=== PATIENT | female | born 2000 | race Caucasian/White ===

== ENCOUNTER 2020-09-21 22:57 | Emergency (ER) | payer MEDICAID ==
[~2020-09-21] VITALS: Ht 167.6 cm; Wt 75.0 kg
[2020-09-21] MEDS ORDERED: dexamethasone 4mg tablet PO STA (23:19)
[2020-09-21] MEDS ORDERED: albuterol 2.5 MG/3 ML nebule NEB ONE (23:20)
[2020-09-22] MEDS ORDERED: ALBU18HF2 IH (01:07)
[2020-09-22] MEDS ORDERED: DEC4T PO (01:07)
[2020-09-22 01:18] VITALS: BP 130/78
== END 2020-09-22 01:19 | disposition home or self-care (01) ==
LOC: ER 22:58
DX: J45.901 Unspecified asthma with (acute) exacerbation (principal); Z20.822 Contact with and (suspected) exposure to COVID-19; R09.89 Other specified symptoms and signs involving the circulatory and respiratory systems; R06.02 Shortness of breath; R05 Cough
CPT/HCPCS: 36415; 87502; 87503; 94640; 99283; U0003; 94760

== ENCOUNTER 2020-10-07 07:40 | Emergency (ER) | payer MEDICAID ==
[~2020-10-07] VITALS: Ht 154.9 cm; Wt 84.5 kg
[~2020-10-07 07:40] MED LIST: ALBU18HF2 IH; DEC4T PO
--- NOTE | 2020-10-07 08:00 | NUR ---
DR. WALLS AT BEDSIDE
--- NOTE | 2020-10-07 08:00 | NUR ---
pt refuses iv and blood draw. dr. ramirez aware please see new orders.
[2020-10-07] MEDS ORDERED: normal saline 1000ml 1,000 ML IV ONE ×2 (08:10→10:20)
[2020-10-07] MEDS ORDERED: fentaNYL intranasal KIT NAS STA (08:11)
[2020-10-07] MEDS ORDERED: LORazepam 0.5 MG tablet PO ONE (08:15)
[2020-10-07] MEDS ORDERED: labetalol 100mg tablet PO ONE (08:40)
[2020-10-07 09:41] LABS: ALANINE AMINOTRANSFERASE 38 U/L (12-78); ALBUMIN 3.8 G/DL (3.4-5.0); ALBUMIN/GLOBULIN RATIO 0.9 (1.1-1.5); ALKALINE PHOSPHATASE 35 IU/L (20-180); ANION GAP 12 (8-16); ASPARTATE AMINO TRANSFERASE 27 U/L (10-37); BILIRUBIN,TOTAL 0.1 MG/DL (0.1-1.0); BLOOD UREA NITROGEN 12 MG/DL (7-18); BUN/CREATININE RATIO 14.6 (6.6-38.0); CALCIUM 8.8 MG/DL (8.5-10.1); CHLORIDE 100 MMOL/L (99-107); CREATININE 0.82 MG/DL (0.40-0.90); GLUCOSE 106 MG/DL (70-104); SODIUM 139 MMOL/L (135-145); TOTAL CARBON DIOXIDE 27.5 MMOL/L (24-32); TOTAL PROTEIN 8.1 G/DL (6.4-8.2); eGFR 90 ML/MIN
--- NOTE | 2020-10-07 09:46 | NUR ---
ATTEMPTED TO DRAW OUT OF PIV TO RIGHT HAND TO NO AVAIL DESPITE ATTEMPTING MULTIPLE DIFFERENT TECHNIQUES EDUCATED PATIENT AND FATHER, PATIENT AGREED TO ALLOW TRANSVERSE ABDOMINAL MUSCLE NURSE TO DRAW CBC DUE TO IT CLOTTNG
[2020-10-07 09:47] LABS: MAGNESIUM 1.7 MG/DL (1.5-2.4)
[2020-10-07 09:48] LABS: POTASSIUM 3.5 MMOL/L (3.5-5.1)
[2020-10-07 10:05] LABS: BASOPHILS # (AUTO) 0.1 X10'3 (0-0.2); BASOPHILS % (AUTO) 0.3 % (0-1); EOSINOPHILS # (AUTO) 0.1 X10'3 (0-0.9); EOSINOPHILS % (AUTO) 0.6 % (0-6); HEMATOCRIT 36.3 % (35.0-45.0); HEMOGLOBIN 11.4 g/dl (12.0-16.0); LYMPHOCYTES # (AUTO) 1.6 X10'3 (1.1-4.8); LYMPHOCYTES % (AUTO) 7.5 % (21-51); MEAN CORPUSCULAR HEMOGLOBIN 25.2 PG (27.0-31.0); MEAN CORPUSCULAR HGB CONC 31.5 g/dL (33.0-36.5); MEAN CORPUSCULAR VOLUME 80.1 FL (78-98); MEAN PLATELET VOLUME 8.1 FL (7.4-10.4); MONOCYTES # (AUTO) 1.4 X10'3 (0-0.9); MONOCYTES % (AUTO) 6.6 % (2-12); NEUTROPHILS # (AUTO) 17.9 X10'3 (1.8-7.7); PLATELET COUNT 286 X10'3 (140-440); RED BLOOD COUNT 4.53 X10'6 (4.20-5.60); RED CELL DISTRIBUTION WIDTH 16.5 % (11.5-14.5); WHITE BLOOD COUNT 21.1 X10'3 (4.5-11.0)
[2020-10-07 10:10] LABS: HCG SERUM QL NEGATIVE
[2020-10-07] MEDS ORDERED: iohexol 350MG/ML 100ml bottle IV ONE (10:21)
--- NOTE | 2020-10-07 10:25 | NUR ---
ATTEMPT REPEAT EKG, PATIENT NOT IN ROOM, PATIENT OFF TO CT.
--- NOTE | 2020-10-07 11:24 | NUR ---
PT WITH INCREASE RR 28, LABORED, 02 SAT 89-90 ON RA. INCREASE 02 TO 4 L//MIN NC. 02 SAT 92-93%
[2020-10-07] MEDS ORDERED: ipratropium/albuterol 3ml nebule NEB ONE (11:25)
[2020-10-07] MEDS ORDERED: LORazepam 2 mg/ml vial IV ONE (11:25)
--- NOTE | 2020-10-07 11:30 | NUR ---
DR. WALLS AT BEDSIDE, PLEASE SEE NEW ORDERS.
--- NOTE | 2020-10-07 11:31 | NUR ---
NC CHANGED TO NON-REBREATHER ON 10L/MIN. 02 SAT 97% RR 24, HR 128.
[2020-10-07] MEDS ORDERED: ketorolac trometh. 30mg/ml inj. IV ONE (11:55)
[2020-10-07] MEDS ORDERED: acetaminophen 325mg tablet PO ONE (12:00)
[2020-10-07] MEDS ORDERED: PRED20TA PO (13:13)
--- NOTE | 2020-10-07 13:13 | NUR ---
EDUCATED PT TO DB&C Q1HR AT HOME
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
[2020-10-07 13:57] VITALS: BP 105/53
== END 2020-10-07 13:58 | disposition home or self-care (01) ==
LOC: ER 07:40
DX: J45.909 Unspecified asthma, uncomplicated (principal); Z79.899 Other long term (current) drug therapy
CPT/HCPCS: 36415; 71045; 71275; 80053; 83735; 83880; 84145; 84484; 84703; 85025; 93005; 94640; 96361; 96374; 96375; 99285; J1885; J2060; J3010; J7030; Q9967; 94760

== ENCOUNTER 2020-11-07 09:52 | Emergency (ER) | payer MEDICAID ==
[~2020-11-07] VITALS: Ht 154.9 cm; Wt 100.0 kg
[~2020-11-07 09:52] MED LIST changes: -DEC4T PO
[2020-11-07] MEDS ORDERED: albuterol 2.5 MG/3 ML nebule CONTNEB PRN ×2 (10:05→10:10)
[2020-11-07] MEDS ORDERED: ALBU18HF2 INH (10:07)
[2020-11-07] MEDS ORDERED: PRED20TA PO (10:07)
[2020-11-07] MEDS ORDERED: dexamethasone 4mg tablet PO ONE (10:10)
[2020-11-07 12:18] VITALS: BP 104/51
== END 2020-11-07 12:19 | disposition home or self-care (01) ==
LOC: ER 09:53
DX: J45.901 Unspecified asthma with (acute) exacerbation (principal); Z79.899 Other long term (current) drug therapy
CPT/HCPCS: 93005; 94640; 94644; 94760; 99285; A7015

== ENCOUNTER 2021-05-15 23:34 | Emergency (ER) | payer MEDICAID ==
[~2021-05-15] VITALS: Ht 154.9 cm; Wt 82.2 kg
[~2021-05-15 23:34] MED LIST changes: +ALBU18HF2 INH; +NO HOME MEDS
[2021-05-15] MEDS ORDERED: ipratropium/albuterol 3ml nebule NEB ONE (23:40)
[2021-05-15] MEDS ORDERED: methylPREDNISolone sod succ 125mg/2ml vial IV ONE (23:50)
--- NOTE | 2021-05-16 00:21 | NUR ---
pt refusing covid swab, states"I dont have covid, I dont leave my bedroom"
[2021-05-16 00:34] LABS: BASOPHILS % (AUTO) 0.3 % (0-1); EOSINOPHILS # (AUTO) 0.2 X10'3 (0-0.9); EOSINOPHILS % (AUTO) 0.9 % (0-6); HEMATOCRIT 36.3 % (35.0-45.0); HEMOGLOBIN 12.1 g/dl (12.0-16.0); LYMPHOCYTES # (AUTO) 2.5 X10'3 (1.1-4.8); LYMPHOCYTES % (AUTO) 15.1 % (21-51); MEAN CORPUSCULAR HEMOGLOBIN 26.5 PG (27.0-31.0); MEAN CORPUSCULAR HGB CONC 33.4 g/dL (33.0-36.5); MEAN CORPUSCULAR VOLUME 79.4 FL (78-98); MEAN PLATELET VOLUME 7.9 FL (7.4-10.4); MONOCYTES # (AUTO) 1.3 X10'3 (0-0.9); MONOCYTES % (AUTO) 7.7 % (2-12); NEUTROPHILS # (AUTO) 12.6 X10'3 (1.8-7.7); PLATELET COUNT 362 X10'3 (140-440); RED BLOOD COUNT 4.57 X10'6 (4.20-5.60); RED CELL DISTRIBUTION WIDTH 15.4 % (11.5-14.5); WHITE BLOOD COUNT 16.6 X10'3 (4.5-11.0)
[2021-05-16 00:44] LABS: ALANINE AMINOTRANSFERASE 36 U/L (12-78); ALBUMIN 3.6 G/DL (3.4-5.0); ALBUMIN/GLOBULIN RATIO 0.9 (1.1-1.5); ALKALINE PHOSPHATASE 33 IU/L (20-180); ANION GAP 14 (8-16); ASPARTATE AMINO TRANSFERASE 17 U/L (10-37); BILIRUBIN,TOTAL 0.2 MG/DL (0.1-1.0); BLOOD UREA NITROGEN 13 MG/DL (7-18); BUN/CREATININE RATIO 13.8 (6.6-38.0); CALCIUM 8.7 MG/DL (8.5-10.1); CHLORIDE 104 MMOL/L (99-107); CREATININE 0.94 MG/DL (0.40-0.90); GLUCOSE 139 MG/DL (70-104); POTASSIUM 3.3 MMOL/L (3.5-5.1); SODIUM 142 MMOL/L (135-145); TOTAL CARBON DIOXIDE 24.4 MMOL/L (24-32); TOTAL PROTEIN 7.5 G/DL (6.4-8.2); eGFR 76 ML/MIN
[2021-05-16 01:03] VITALS: BP 121/49
[2021-05-16] MEDS ORDERED: ipratropium/albuterol 3ml nebule ONE (01:13)
[2021-05-16] MEDS: albuterol 2.5 MG/3 ML nebule CONTNEB PRN ×2 (01:15→01:18)
[2021-05-16] MEDS ORDERED: ALBU18HF2 INH (02:27)
[2021-05-16] MEDS ORDERED: PRED20TA PO (02:27)
[2021-05-16] MEDS ORDERED: INHA1INH2 IH (02:27)
== END 2021-05-16 02:30 | disposition home or self-care (01) ==
LOC: ER 23:34
DX: J45.909 Unspecified asthma, uncomplicated (principal)
CPT/HCPCS: 36415; 71045; 80053; 85025; 94640; 96374; 99285; J2930; 94760; A7015

== ENCOUNTER 2021-11-15 15:29 | Emergency (ER) | payer MEDICAID ==
[~2021-11-15] VITALS: Ht 154.9 cm; Wt 86.2 kg
[~2021-11-15 15:29] MED LIST changes: +INHA1INH2 IH
[2021-11-15 15:40] VITALS: BP 137/91
== END 2021-11-15 18:40 | disposition left against medical advice (07) ==
LOC: ER 15:30
DX: R05.9 Cough, unspecified (principal); Z53.21 Procedure and treatment not carried out due to patient leaving prior to being seen by health care provider
CPT/HCPCS: 71045

== ENCOUNTER 2023-04-10 05:24 | Emergency (ER) | payer MEDICAID ==
[~2023-04-10] VITALS: Ht 154.9 cm; Wt 88.6 kg
[2023-04-10 05:26] VITALS: TEMP 98.6
[2023-04-10] MEDS ORDERED: methylPREDNISolone sod succ 125mg/2ml vial IV ONE (05:35)
[2023-04-10] MEDS ORDERED: ipratropium 0.5 MG/2.5ML nebule IH ONE (05:35)
[2023-04-10] MEDS ORDERED: normal saline 1000ML IV soln IVB ONE (05:35)
[2023-04-10] MEDS ORDERED: albuterol 2.5 MG/3 ML nebule CONTNEB PRN (05:35)
[2023-04-10 05:47] VITALS: PULSE 129; RESP 28; O2SAT 89
[2023-04-10 06:40] LABS: ALANINE AMINOTRANSFERASE 35 U/L (12-78); ALBUMIN 3.5 G/DL (3.4-5.0); ALKALINE PHOSPHATASE 30 IU/L (46-116); ANION GAP 6 (8-16); BILIRUBIN,TOTAL 0.2 MG/DL (0.1-1.0); BLOOD UREA NITROGEN 12 MG/DL (7-18); BUN/CREATININE RATIO 15.2 (10.0-20.0); CALCIUM 8.9 MG/DL (8.5-10.1); CHLORIDE 104 MMOL/L (99-107); CREATININE 0.79 MG/DL (0.40-0.90); GLUCOSE 100 MG/DL (70-104); SODIUM 138 MMOL/L (135-145); TOTAL CARBON DIOXIDE 28.2 MMOL/L (24-32); TOTAL PROTEIN 7.1 G/DL (6.4-8.2); eCRCL 84 ML/MIN; eGFR > 90 ML/MIN
--- NOTE | 2023-04-10 06:40 | NUR ---
ADVISED WE DO NOT NEED EKG
[2023-04-10 06:46] LABS: BASOPHILS # (AUTO) 0.1 X10'3 (0-0.2); BASOPHILS % (AUTO) 0.7 % (0-1); EOSINOPHILS # (AUTO) 0.7 X10'3 (0-0.9); EOSINOPHILS % (AUTO) 5.5 % (0-6); HEMATOCRIT 38.4 % (35.0-45.0); HEMOGLOBIN 12.5 g/dl (12.0-16.0); LYMPHOCYTES # (AUTO) 3.7 X10'3 (1.1-4.8); LYMPHOCYTES % (AUTO) 27.7 % (21-51); MEAN CORPUSCULAR HEMOGLOBIN 27.3 PG (27.0-31.0); MEAN CORPUSCULAR HGB CONC 32.5 g/dL (33.0-36.5); MEAN CORPUSCULAR VOLUME 84.2 FL (78-98); MEAN PLATELET VOLUME 9.2 FL (7.4-10.4); MONOCYTES # (AUTO) 1.1 X10'3 (0-0.9); MONOCYTES % (AUTO) 7.9 % (2-12); NEUTROPHILS # (AUTO) 7.8 X10'3 (1.8-7.7); NEUTROPHILS % (AUTO) 58.2 % (42-75); PLATELET COUNT 283 X10'3 (140-440); RED BLOOD COUNT 4.56 X10'6 (4.20-5.60); RED CELL DISTRIBUTION WIDTH 14.2 % (11.5-14.5); WHITE BLOOD COUNT 13.4 X10'3 (4.5-11.0)
[2023-04-10 06:47] LABS: PRO BRAIN NATRIURETIC PEPTIDE 39 PG/ML (0-125)
[2023-04-10] MEDS ORDERED: PRED50TA PO (06:47)
[2023-04-10 06:50] LABS: ASPARTATE AMINO TRANSFERASE 26 U/L (10-37)
[2023-04-10 06:58] VITALS: BP 141/82
[2023-04-10 07:15] VITALS: RESP 20
[2023-04-10 08:08] VITALS: PULSE 108; O2SAT 96
== END 2023-04-10 08:11 | disposition home or self-care (01) ==
LOC: ER 05:25
DX: J45.909 Unspecified asthma, uncomplicated (principal); Z20.822 Contact with and (suspected) exposure to COVID-19; R03.0 Elevated blood-pressure reading, without diagnosis of hypertension; Z79.899 Other long term (current) drug therapy
CPT/HCPCS: 36415; 71045; 80053; 83880; 84484; 85025; 87502; 87503; 87811; 93005; 94640; 94644; 96361; 96374; 99285; J2930; J7030; 94760

== ENCOUNTER 2023-10-24 18:36 | Emergency (ER) | payer MEDICAID ==
[~2023-10-24] VITALS: Ht 165.1 cm; Wt 104.5 kg
[~2023-10-24 18:36] MED LIST changes: +PRED50TA PO
[2023-10-24] MEDS: magnesium 2GM in 50ml NS 50 ML IV ONE (18:47)
[2023-10-24] MEDS: methylPREDNISolone sod succ 125mg/2ml vial IV ONE (18:47)
[2023-10-24] MEDS: albuterol 2.5 MG/3 ML nebule CONTNEB PRN (18:51)
[2023-10-24] MEDS: ipratropium 0.5 MG/2.5ML nebule IH ONE (18:51)
[2023-10-24 18:52] VITALS: PULSE 159; RESP 30; O2SAT 99
[2023-10-24 19:13] LABS: BASOPHILS # (AUTO) 0.2 X10'3 (0-0.2); BASOPHILS % (AUTO) 0.8 % (0-1); EOSINOPHILS # (AUTO) 0.5 X10'3 (0-0.9); EOSINOPHILS % (AUTO) 2.3 % (0-6); HEMATOCRIT 39.7 % (35.0-45.0); HEMOGLOBIN 13.1 g/dl (12.0-16.0); LYMPHOCYTES # (AUTO) 6.9 X10'3 (1.1-4.8); LYMPHOCYTES % (AUTO) 29.7 % (21-51); MEAN CORPUSCULAR HEMOGLOBIN 27.1 PG (27.0-31.0); MEAN CORPUSCULAR HGB CONC 32.9 g/dL (33.0-36.5); MEAN CORPUSCULAR VOLUME 82.5 FL (78-98); MEAN PLATELET VOLUME 8.3 FL (7.4-10.4); MONOCYTES # (AUTO) 1.5 X10'3 (0-0.9); MONOCYTES % (AUTO) 6.5 % (2-12); NEUTROPHILS # (AUTO) 14.2 X10'3 (1.8-7.7); NEUTROPHILS % (AUTO) 60.7 % (42-75); PLATELET COUNT 441 X10'3 (140-440); RED BLOOD COUNT 4.81 X10'6 (4.20-5.60); RED CELL DISTRIBUTION WIDTH 15.5 % (11.5-14.5); WHITE BLOOD COUNT 23.3 X10'3 (4.5-11.0)
[2023-10-24 19:25] LABS: ALBUMIN 3.7 G/DL (3.4-5.0); ANION GAP 8 (8-16); BLOOD UREA NITROGEN 15 MG/DL (7-18); BUN/CREATININE RATIO 15.3 (10.0-20.0); CHLORIDE 104 MMOL/L (99-107); CREATININE 0.98 MG/DL (0.40-0.90); GLUCOSE 124 MG/DL (70-104); MAGNESIUM 1.9 MG/DL (1.5-2.4); POTASSIUM 3.5 MMOL/L (3.5-5.1); SODIUM 139 MMOL/L (135-145); TOTAL CARBON DIOXIDE 26.7 MMOL/L (24-32); eCRCL 80 ML/MIN; eGFR 70 ML/MIN
[2023-10-24 20:00] VITALS: PULSE 139; RESP 22; O2SAT 97
[2023-10-24] MEDS ORDERED: PRED20TA PO (20:52)
[2023-10-24 22:29] VITALS: BP 147/106; PULSE 123; RESP 21; TEMP 98.4; O2SAT 93
[2023-10-25 00:24] LABS: PLATELET ESTIMATE NORMAL; TOTAL CELLS COUNTED 100
== END 2023-10-24 22:30 | disposition home or self-care (01) ==
LOC: ER 18:37
DX: J45.901 Unspecified asthma with (acute) exacerbation (principal); Z91.030 Bee allergy status; Z79.899 Other long term (current) drug therapy
CPT/HCPCS: 36415; 71045; 80048; 83735; 84145; 85007; 85025; 93005; 94640; 94644; 96365; 96366; 96375; 99285; J2930; J3475; 94760; A7015

== ENCOUNTER 2023-10-31 05:59 | Emergency (ER) | payer MEDICAID ==
[2023-10-31] VITALS (8 sets, daily range): BP systolic 111; BP diastolic 57; PULSE 115–130; RESP 15–24; TEMP 98; O2SAT 95–98
[~2023-10-31] VITALS: Ht 154.9 cm; Wt 100.0 kg
[~2023-10-31 05:59] MED LIST changes: +PRED20TA PO
[2023-10-31] MEDS: LORazepam 2 mg/ml vial IV ONE (06:09)
[2023-10-31] MEDS: methylPREDNISolone sod succ 125mg/2ml vial IV ONE (06:10)
[2023-10-31] MEDS: normal saline 1000ML IV soln IVB ONE ×2 (06:10→10:13)
[2023-10-31] MEDS: magnesium 2GM in 50ml NS 50 ML IV ONE (06:19)
[2023-10-31 06:29] LABS: BASOPHILS # (AUTO) 0.1 X10'3 (0-0.2); BASOPHILS % (AUTO) 0.5 % (0-1); EOSINOPHILS % (AUTO) 0.2 % (0-6); HEMATOCRIT 39.2 % (35.0-45.0); HEMOGLOBIN 12.9 g/dl (12.0-16.0); LYMPHOCYTES # (AUTO) 3.6 X10'3 (1.1-4.8); LYMPHOCYTES % (AUTO) 17.4 % (21-51); MEAN CORPUSCULAR HEMOGLOBIN 27.2 PG (27.0-31.0); MEAN CORPUSCULAR VOLUME 82.6 FL (78-98); MONOCYTES # (AUTO) 1.3 X10'3 (0-0.9); MONOCYTES % (AUTO) 6.3 % (2-12); NEUTROPHILS # (AUTO) 15.9 X10'3 (1.8-7.7); NEUTROPHILS % (AUTO) 75.6 % (42-75); PLATELET COUNT 386 X10'3 (140-440); RED BLOOD COUNT 4.75 X10'6 (4.20-5.60); RED CELL DISTRIBUTION WIDTH 15.3 % (11.5-14.5)
[2023-10-31] MEDS: albuterol 2.5 MG/3 ML nebule CONTNEB PRN (06:31)
[2023-10-31 07:38] LABS: ANION GAP 8 (8-16); BLOOD UREA NITROGEN 16 MG/DL (7-18); CHLORIDE 107 MMOL/L (99-107); CREATININE 0.84 MG/DL (0.40-0.90); GLUCOSE 114 MG/DL (70-104); POTASSIUM 3.3 MMOL/L (3.5-5.1); SODIUM 140 MMOL/L (135-145); eCRCL 79 ML/MIN; eGFR 84 ML/MIN
[2023-10-31] MEDS: dexamethasone sod phosphate 10mg/ml inj IV STA (10:13)
[2023-10-31] MEDS: albuterol 2.5 MG/3 ML nebule NEB ONE (10:14)
== END 2023-10-31 12:13 | disposition home or self-care (01) ==
LOC: ER 05:59
DX: J45.901 Unspecified asthma with (acute) exacerbation (principal); J44.9 Chronic obstructive pulmonary disease, unspecified; Z91.030 Bee allergy status; Z79.899 Other long term (current) drug therapy
CPT/HCPCS: 36415; 71045; 80048; 85025; 93005; 94640; 94644; 96361; 96374; 96375; 99285; J1100; J2060; J2930; J3475; J7030; 99291; A7015

== ENCOUNTER 2023-11-08 14:26 | Emergency (ER) | payer MEDICAID ==
[~2023-11-08] VITALS: Ht 154.9 cm; Wt 100.0 kg
[2023-11-08 14:30] VITALS: TEMP 99
[2023-11-08] MEDS: diphenhydrAMINE 50 mg/ml inj IV ONE (15:09)
[2023-11-08] MEDS: methylPREDNISolone sod succ 125mg/2ml vial IV ONE (15:10)
[2023-11-08] MEDS: normal saline 1000ML IV soln IVB ONE (15:47)
[2023-11-08] MEDS: magnesium 2GM in 50ml NS 50 ML IV ONE (15:47)
[2023-11-08] MEDS: albuterol 2.5 MG/3 ML nebule NEB ONE (16:35)
[2023-11-08 16:39] VITALS: PULSE 105; RESP 16; O2SAT 99
[2023-11-08 16:47] LABS: BASOPHILS # (AUTO) 0.1 X10'3 (0-0.2); BASOPHILS % (AUTO) 0.4 % (0-1); EOSINOPHILS # (AUTO) 0.3 X10'3 (0-0.9); EOSINOPHILS % (AUTO) 1.6 % (0-6); HEMATOCRIT 40.4 % (35.0-45.0); LYMPHOCYTES # (AUTO) 1.5 X10'3 (1.1-4.8); LYMPHOCYTES % (AUTO) 9.3 % (21-51); MEAN CORPUSCULAR HEMOGLOBIN 26.8 PG (27.0-31.0); MEAN CORPUSCULAR HGB CONC 32.1 g/dL (33.0-36.5); MEAN CORPUSCULAR VOLUME 83.4 FL (78-98); MEAN PLATELET VOLUME 8.1 FL (7.4-10.4); MONOCYTES # (AUTO) 1.3 X10'3 (0-0.9); MONOCYTES % (AUTO) 7.9 % (2-12); NEUTROPHILS # (AUTO) 12.9 X10'3 (1.8-7.7); NEUTROPHILS % (AUTO) 80.8 % (42-75); PLATELET COUNT 320 X10'3 (140-440); RED BLOOD COUNT 4.84 X10'6 (4.20-5.60); RED CELL DISTRIBUTION WIDTH 15.6 % (11.5-14.5)
[2023-11-08 16:53] VITALS: PULSE 110; RESP 16
[2023-11-08 16:53] LABS: ALBUMIN 3.6 G/DL (3.4-5.0); ANION GAP 11 (8-16); BLOOD UREA NITROGEN 12 MG/DL (7-18); BUN/CREATININE RATIO 11.7 (10.0-20.0); CALCIUM 9.3 MG/DL (8.5-10.1); CHLORIDE 104 MMOL/L (99-107); CREATININE 1.03 MG/DL (0.40-0.90); GLUCOSE 110 MG/DL (70-104); POTASSIUM 3.4 MMOL/L (3.5-5.1); SODIUM 141 MMOL/L (135-145); TOTAL CARBON DIOXIDE 26.1 MMOL/L (24-32); eCRCL 64 ML/MIN; eGFR 66 ML/MIN
[2023-11-08] MEDS ORDERED: MONT-47 PO (17:08)
[2023-11-08 17:10] VITALS: BP 135/91; PULSE 127; RESP 18; O2SAT 93
== END 2023-11-08 17:17 | disposition home or self-care (01) ==
LOC: ER 14:26
DX: J45.901 Unspecified asthma with (acute) exacerbation (principal); J44.9 Chronic obstructive pulmonary disease, unspecified; Z91.030 Bee allergy status; Z79.899 Other long term (current) drug therapy
CPT/HCPCS: 36415; 71045; 80048; 85025; 93005; 94640; 96365; 96375; 99285; J1200; J2930; J3475; J7030; 94760

== ENCOUNTER 2024-01-04 17:45 | Inpatient (IN) | payer MEDICAID ==
[~2024-01-04] VITALS: Ht 154.9 cm; Wt 81.8 kg
[2024-01-04] VITALS (12 sets, daily range): BP systolic 109–143; BP diastolic 47–87; PULSE 88–118; RESP 18; O2SAT 93–100
[~2024-01-04 17:45] MED LIST changes: +MONT-47 PO; -PRED20TA PO; +rocuronium 10mg/ml inj IV ONE
[2024-01-04] MEDS ORDERED: succinylcholine 20mg/ml inj IV ONE (17:55)
[2024-01-04] MEDS: methylPREDNISolone sod succ 125mg/2ml vial IV ONE (18:39)
[2024-01-04] MEDS: MIDAZolam 5mg/ml 2ml vial IV ONE ×2 (18:39→18:48)
[2024-01-04] MEDS ORDERED: iohexol 350MG/ML 100ml bottle IV ONE (18:39)
[2024-01-04] MEDS: FENTANYL-0.9 % NACL/PF 100 ML IV SCH (18:40)
[2024-01-04] MEDS: ipratropium/albuterol 3ml nebule NEB SCH (18:49)
[2024-01-04] MEDS: fentaNYL/PF 50MCG/1 ML 2ML syringe IV ONE (18:50)
[2024-01-04] MEDS: MIDAZOLAM IN NACL,ISO-OSMOT/PF 100 ML IV PRN (18:54)
[2024-01-04 18:55] LABS: ABG HCO3 24.1 mmol/L (22.0-26.0); ABG OXYGEN SATURATION 99.6 % (94-97); ABG PCO2 (T) 51.4 mmHg (32.0-45.0); ABG PH (T) 7.289 (7.350-7.450); ABG PO2 (T) 357.4 mmHg (75.0-100.0); ALLEN'S TEST POSITIVE; FCOHb 0.3 % (0.0-3.9); FHHb 0.4 % (0.0-5.0); FMetHb 0.5 % (0.0-1.5); FO2Hb 98.8 % (94-97); PEEP 8 cm H2O; RESPIRATORY RATE 18 b/min; TIDAL VOLUME 350 mL; TOTAL HEMOGLOBIN 13.2 G/dl (12.0-16.0)
[2024-01-04 19:15] LABS: BASOPHILS # (AUTO) 0.1 X10'3 (0-0.2); BASOPHILS % (AUTO) 0.7 % (0-1); EOSINOPHILS # (AUTO) 0.6 X10'3 (0-0.9); EOSINOPHILS % (AUTO) 4.3 % (0-6); HEMATOCRIT 42.4 % (35.0-45.0); HEMOGLOBIN 13.8 g/dl (12.0-16.0); LYMPHOCYTES # (AUTO) 5.9 X10'3 (1.1-4.8); LYMPHOCYTES % (AUTO) 39.8 % (21-51); MEAN CORPUSCULAR HEMOGLOBIN 26.9 PG (27.0-31.0); MEAN CORPUSCULAR HGB CONC 32.5 g/dL (33.0-36.5); MEAN CORPUSCULAR VOLUME 82.7 FL (78-98); MEAN PLATELET VOLUME 8.8 FL (7.4-10.4); MONOCYTES # (AUTO) 1.4 X10'3 (0-0.9); MONOCYTES % (AUTO) 9.6 % (2-12); NEUTROPHILS # (AUTO) 6.8 X10'3 (1.8-7.7); NEUTROPHILS % (AUTO) 45.6 % (42-75); PLATELET COUNT 454 X10'3 (140-440); RED BLOOD COUNT 5.12 X10'6 (4.20-5.60); RED CELL DISTRIBUTION WIDTH 15.1 % (11.5-14.5); WHITE BLOOD COUNT 14.9 X10'3 (4.5-11.0)
[2024-01-04] MEDS: ondansetron/PF 4mg/2ml inj IV ONE (19:21)
[2024-01-04 19:24] LABS: ALANINE AMINOTRANSFERASE 35 U/L (12-78); ALBUMIN 3.8 G/DL (3.4-5.0); ALBUMIN/GLOBULIN RATIO 0.8 (1.1-1.5); ALKALINE PHOSPHATASE 38 IU/L (46-116); ANION GAP 8 (8-16); ASPARTATE AMINO TRANSFERASE 23 U/L (10-37); BILIRUBIN,TOTAL 0.2 MG/DL (0.1-1.0); BLOOD UREA NITROGEN 12 MG/DL (7-18); BUN/CREATININE RATIO 12.5 (10.0-20.0); CALCIUM 9.1 MG/DL (8.5-10.1); CHLORIDE 104 MMOL/L (99-107); CREATININE 0.96 MG/DL (0.40-0.90); GLUCOSE 142 MG/DL (70-104); POTASSIUM 4.1 MMOL/L (3.5-5.1); SODIUM 138 MMOL/L (135-145); TOTAL PROTEIN 8.6 G/DL (6.4-8.2); eCRCL 69 ML/MIN; eGFR 72 ML/MIN
[2024-01-04] MEDS: methylPREDNISolone sod succ 125mg/2ml vial IV SCH (20:00)
[2024-01-04] MEDS: ringers solution, lacted 1,000 ML IV ONE ×2 (20:23→21:26)
[2024-01-04] MEDS: CefTRIAXone/D5W-Rocephin 1gm 50 ML IV ONE (21:26)
[2024-01-04] MEDS ORDERED: ondansetron/PF 4mg/2ml inj IV PRN ×2 (21:50→22:35)
[2024-01-04] MEDS ORDERED: magnesium 4gm in 100ml NS 100 ML IV PRN (21:50)
[2024-01-04] MEDS ORDERED: potassium Cl 40MEQ/1/2NS 520ml 520 ML IV PRN (21:50)
[2024-01-04] MEDS ORDERED: mag hydrox/Alum hydrox/simeth 30ml oral suspension PO PRN (21:50)
[2024-01-04] MEDS ORDERED: ipratropium/albuterol 3ml nebule NEB PRN (21:50)
[2024-01-04] MEDS ORDERED: FENTANYL-0.9 % NACL/PF 100 ML IV SCH (21:50)
[2024-01-04] MEDS ORDERED: magnesium 2GM in 50ml NS 50 ML IV PRN (21:50)
[2024-01-04] MEDS ORDERED: magnesium Cl slow-release 64mg tablet PO PRN (21:50)
[2024-01-04] MEDS ORDERED: midazolam 100mg in NS 100ml 100 ML IV SCH (21:50)
[2024-01-04] MEDS ORDERED: potassium Cl 20 mEq SR tablet PO PRN ×2 (21:50)
[2024-01-04] MEDS ORDERED: acetaminophen 325mg tablet PO PRN ×3 (21:50→22:35)
[2024-01-04] MEDS ORDERED: magnesium hydroxide 30ml (MOM) UD suspension PO PRN ×2 (21:50→22:35)
[2024-01-04] MEDS: azithromycin/NS 500mg/250ml 250 ML IV SCH (22:12)
[2024-01-04] MEDS ORDERED: morphine 2 MG/ML inj. syringe IV PRN (22:35)
[2024-01-04] MEDS ORDERED: ipratropium/albuterol 3ml nebule NEB SCH (23:00)
[2024-01-05] VITALS (24 sets, daily range): BP systolic 111–149; BP diastolic 56–81; PULSE 75–148; RESP 11–20; TEMP 98.3; O2SAT 92–98
[2024-01-05] MEDS ORDERED: heparin, porcine 5000 units/ml vial SQ SCH
[2024-01-05] MEDS: heparin, porcine 5000 units/ml vial SQ SCH (00:50)
[2024-01-05 03:39] LABS: ABG BASE EXCESS -5.2 mmol/L (-2.0-2.0); ABG HCO3 18.9 mmol/L (22.0-26.0); ABG OXYGEN SATURATION 94.3 % (94-97); ABG PH (T) 7.387 (7.350-7.450); ABG PO2 (T) 71.4 mmHg (75.0-100.0); ALLEN'S TEST Modified; FCOHb 0.3 % (0.0-3.9); FHHb 5.7 % (0.0-5.0); FMetHb 0.3 % (0.0-1.5); FO2Hb 93.7 % (94-97); MODE CMV PRVC IT 0.8; PATIENT TEMPERATURE 36.6; PEEP 5 cm H2O; RESPIRATORY RATE 18 b/min; TIDAL VOLUME 350 mL; TOTAL HEMOGLOBIN 13.8 G/dl (12.0-16.0)
[2024-01-05] MEDS: K and/or MAG REPLACEMENT MC SCH (08:00)
[2024-01-05] MEDS: morphine 4 MG/ML inj SYRINge IV PRN (08:56)
[2024-01-05] MEDS: CefTRIAXone/D5W-Rocephin 1gm 50 ML IV SCH (08:57)
[2024-01-05] MEDS: docusate sod 100mg capsule PO SCH (08:57)
[2024-01-05] MEDS: ringers solution, lacted 1,000 ML IV SCH (08:59)
[2024-01-05] MEDS: ALPRAZolam 0.25mg tablet PO PRN (09:00)
[2024-01-05] MEDS ORDERED: NORE0.3547 PO (10:32)
[2024-01-05] MEDS ORDERED: TIOT4MIS5 INH (10:32)
[2024-01-05] MEDS ORDERED: GUAI600T45 PO (10:32)
[2024-01-05] MEDS ORDERED: PRED20TA PO (10:38)
[2024-01-05] MEDS: ipratropium/albuterol 3ml nebule NEB SCH (14:12)
[2024-01-06] MEDS ORDERED: mineral oil/petrolatum ophthal oint EACHEYE SCH (02:00)
[2024-01-06] MEDS ORDERED: pantoprazole 40mg Tablet.DR PO SCH (07:30)
[2024-01-09] MEDS ORDERED: COMMUNICATION ORDER 1 EA MISC MC ONE ×2 (09:05)
== END 2024-01-05 17:23 | disposition left against medical advice (07) | DRG 133 ==
LOC: ER 17:46 → ED HOLD 21:47 → UNDOADMIN 21:47 → EDBEDREQ 22:02 → ED HOLD 22:39 → CICU 2S 22:56 → SUR 3N 01-05 15:51 → CICU 2S 01-05 15:51
PROVIDERS: ADMIT Internal Medicine Critical Care Medicine; ATTEND Internal Medicine Critical Care Medicine
PROC: 0BH17EZ Insertion of Endotracheal Airway into Trachea, Via Natural or Artificial Opening (ICD-10-PCS; principal; 2024-01-04)
PROC: 5A1935Z Respiratory Ventilation, Less than 24 Consecutive Hours (ICD-10-PCS; 2024-01-04)
PROC: B32T1ZZ Computerized Tomography (CT Scan) of Left Pulmonary Artery using Low Osmolar Contrast (ICD-10-PCS; 2024-01-04)
PROC: B32S1ZZ Computerized Tomography (CT Scan) of Right Pulmonary Artery using Low Osmolar Contrast (ICD-10-PCS; 2024-01-04)
DX: J96.01 Acute respiratory failure with hypoxia (principal); J18.9 Pneumonia, unspecified organism; J44.0 Chronic obstructive pulmonary disease with (acute) lower respiratory infection; J45.901 Unspecified asthma with (acute) exacerbation; Z53.29 Procedure and treatment not carried out because of patient's decision for other reasons
CPT/HCPCS: 36415; 36600; 71045; 71275; 80053; 82803; 82948; 83605; 85018; 85025; 87040; 87070; 87081; 92508; 92616; 93005; 94002; 94003; 94640; 94760; 94799; 96365; 96367; 96375; 99285; A4615; A7015; G0378; J0330; J0456; J0696; J1644; J2250; J2270; J2405; J2919; J3010; J3490; J7120; Q9967